=== PATIENT | female | born 1965 | race Caucasian/White ===

== ENCOUNTER → 2018-05-14 | Outpatient (CLI) | payer OTHER ==
[~2018-05-14] MED LIST: ALBUTEROL/IPRATROPIUM 3 ML NEB ONE; AMLODIPINE PO; FIORICET PO; PRILOSEC PO; PROPRANOLOL PO; XANAX0.5 MG PO
== END ==
LOC: RESP 09:15
PROVIDERS: ATTEND Internal Medicine Critical Care Medicine
DX: Z77.118 Contact with and (suspected) exposure to other environmental pollution (principal); Z87.891 Personal history of nicotine dependence; J98.4 Other disorders of lung; K21.9 Gastro-esophageal reflux disease without esophagitis; K44.9 Diaphragmatic hernia without obstruction or gangrene